=== PATIENT | female | born 1995 | race Hispanic/Latino ===

== ENCOUNTER 2023-05-13 15:19 | Outpatient (RCR) | payer OTHER, SELFPAY | END 2023-08-11 23:59 | disposition home or self-care (01) | LOC: ANHLAB 15:19 | PROVIDERS: PCP Nurse Practitioner Family; Visit Provider Advanced Practice Midwife | DX: O20.0 Threatened abortion (principal); Z3A.00 Weeks of gestation of pregnancy not specified | CPT/HCPCS: 36415; 86850; 86900; 86901 ==

== ENCOUNTER 2023-05-15 10:39 | Outpatient (CLI) | payer OTHER, SELFPAY ==
[2023-05-15 11:32] LABS: Beta HCG Quantitative < 2.39 mIU/ML
== END 2023-05-15 10:40 | disposition home or self-care (01) ==
LOC: ANHLAB 10:42
PROVIDERS: PCP Nurse Practitioner Family; Visit Provider Advanced Practice Midwife
DX: O20.0 Threatened abortion (principal); Z3A.00 Weeks of gestation of pregnancy not specified
CPT/HCPCS: 36415; 84702

== ENCOUNTER 2023-05-16 11:11 | Outpatient (CLI) | payer OTHER, SELFPAY ==
[2023-05-16 12:06] LABS: Beta HCG Quantitative < 2.39 mIU/ML
== END 2023-05-16 11:12 | disposition home or self-care (01) ==
LOC: ANHOBOP 11:17
PROVIDERS: Advanced Practice Midwife; PCP Nurse Practitioner Family; Visit Provider Obstetrics & Gynecology
DX: O20.0 Threatened abortion (principal); Z3A.00 Weeks of gestation of pregnancy not specified
CPT/HCPCS: 36415; 84702

== ENCOUNTER 2024-05-27 13:55 | Emergency (ER) | payer OTHER, SELFPAY ==
--- NOTE | ~2024-05-27 | XR_ITS ---
EXAMINATION: XR abdomen/kub 1V DATE: 05/27/2024 14:37 INDICATION: Right abdominal pain. TECHNIQUE: A supine view of the abdomen was obtained. COMPARISON: None. FINDINGS: There are no dilated loops of bowel. There is a small volume of stool in the colon. Calcifi cations in left pelvis are likely phleboliths. IMPRESSION: 1. Normal bowel gas pattern. Reviewed, dictated and finalized at location A.
[2024-05-27 14:12] VITALS: BP 114/64; PULSE 86; RESP 16; TEMP 36.8; O2SAT 98
--- NOTE | 2024-05-27 14:14 | ED.NAVMDI ---
HPI - Nausea/Vomiting/Diarrhea General Chief complaint: Abdominal Pain Stated complaint: abdominal pain,throwing up Time Seen by Provider: 05/27/24 14:25 Source: patient Mode of arrival: ambulatory Limitations: no limitations History of Present Illness HPI Narrative: Margaret is a 28-year-old female patient presenting to the clinic today with complaints of right-sided abdominal pain that has been ongoing for the past couple months that comes and goes. States that she started vomiting around 3:00 a.m. this morning. Has multiple emesis without blood. She reports her pain is minimal at this time. History of gallstones in the past. Last bowel movement was this morning and normal for the patient. Denies any concern for constipation. Just had miscarriage 3 weeks ago and has been following with her OBGYN provider. She denies any vaginal discharge or odors. States she is concerned for sexually transmitted infections like to be tested. She denies any urinary symptoms. Related Data Allergies Allergy/AdvReac Type Severity Reaction Status Date / Time No Known Allergies Verified 05/27/24 14:51 Review of Systems Review of Systems: Pertinent positives per HPI. Patient denies any fever, chills, rash, headache, visual changes, dizziness, cough, runny nose, sore throat, shortness of breath, chest pain, palpitations, nausea, vomiting, diarrhea, constipation, abdominal pain, or any urinary issues. PMFSH Comments At the time of my signature, I reviewed and agree with the nursing past medical, surgical, social, and family history. There is no relevant family history pertinent to the patient complaint. Course Course Emergency Course: Portions of this record may have been created with voice recognition software. Level of Care: Express Care Visit Vital Signs Vital signs: Vital Signs Temperature 36.8 C 05/27/24 14:12 Pulse Rate 86 05/27/24 14:12 Respiratory Rate 16 05/27/24 14:12 Blood Pressure 114/64 05/27/24 14:12 Pulse Oximetry 98 05/27/24 14:12 Oxygen Delivery Room Air 05/27/24 14:12 Temperature 36.8 C 05/27/24 14:12 Pulse Rate 86 05/27/24 14:12 Respiratory Rate 16 05/27/24 14:12 Blood Pressure 114/64 05/27/24 14:12 Pulse Oximetry 98 05/27/24 14:12 Oxygen Delivery Room Air 05/27/24 14:12 Vital signs reviewed MDM - Nausea/Vomiting/Diarrhea MDM Narrative Medical decision making narrative: At the time of visit patient is resting comfortably on the exam table. Patient appears to be nontoxic. UA positive for ketones and protein. No sign of infection Diagnostics: X-ray of abdomen was performed and shows no sign of etiology for patient's symptoms. Normal bowel gas pattern Plan: I suspect patient has gastritis, right-sided abdominal pain, and high risk sexual behavior. Will send urine off for chlamydia, gonorrhea, and Trichomonas testing.. Prescription for Zofran was sent to the pharmacy. Supportive measures were discussed with the patient and they voiced understanding discharge instructions and agrees to treatment plan. Return precautions reviewed Differential Diagnosis Differential diagnosis: Likely traveler's diarrhea, food poisoning, gastroenteritis, clostridium difficile infection, drug-induced nausea and vomiting and dehydration Discharge Plan Discharge Clinical Impression: Right-sided abdominal pain of unknown etiology Gastritis Qualifiers: Gastritis type: unspecified gastritis Chronicity: acute Gastritis bleeding: without bleeding Qualified Code(s): K29.00 - Acute gastritis without bleeding High risk sexual behavior Qualifiers: High risk sexual behavior type: heterosexual Qualified Code(s): Z72.51 - High risk heterosexual behavior Patient Disposition: Home, Self-Care Condition: Stable Instructions: Antibiotic Form, Gastritis (ED), Safe Sex Practices (ED), Abdominal Pain (ED) Additional Instructions: X-ray of the abdomen shows normal bowel gas pattern. N
[2024-05-27 14:16] LABS: EDUAAPPEAR Clear; EDUABILI Negative; EDUABLOOD Negative; EDUACOLOR1 Yellow; EDUAGLUCOSE Negative; EDUAKETONE 1+; EDUALEUKO Negative; EDUANITRATE Negative; EDUAPROTEIN Trace; EDUAUROBILI 0.2
[2024-05-27 18:23] LABS: Trichomonas Vag PCR NOT DETECTED (NOT DETECTE)
[2024-05-27 18:45] LABS: Chlamydia trachomatis NOT DETECTED (NOT DETECTE); Neisseria gonorrhoeae PCR NOT DETECTED (NOT DETECTE)
== END 2024-05-27 15:07 | disposition home or self-care (01) ==
PROVIDERS: Emergency Provider Nurse Practitioner Family; PCP Nurse Practitioner Family
DX: R10.9 Unspecified abdominal pain (principal); K29.70 Gastritis, unspecified, without bleeding; Z72.51 High risk heterosexual behavior
CPT/HCPCS: 74018; 81003; 87491; 87591; 87661; 99214; G0463